=== PATIENT | male | born 1970 | race Caucasian/White ===

== ENCOUNTER 2018-04-11 07:01 | Emergency (ER) | payer MEDICARE ==
[2018-04-11] MEDS ORDERED: KETOROLAC TROMETHAMINE INJ/PF 30 MG/1 ML SDV IM ONE (08:20)
[2018-04-11] MEDS ORDERED: LIDOCAINE 5% (700 MG) TRANSDERMAL ADH..PATCH TP ONE (08:20)
--- NOTE | 2018-04-11 08:26 | ER Document Report ---
HPI - HPI Time Seen by Provider: 04/11/18 08:08 Pain Level: 4 Notes: Patient is a 47-year-old male with a history of cerebral palsy who presents emergency department complaining of lower neck pain and bilateral shoulder pain. Patient states that he has had bilateral shoulder pain/soreness over the last few months and the lower neck pain started about 5 days ago without any injury. Patient states he does do repetitive motions at work and pain is exacerbated by movement. Patient states that his pains do not radiate otherwise. He has not noticed any bruising or redness. No recent illness. Denies drug allergies. Patient is requesting a work note. Denies any headache, fever, head injury, changes in vision/speech/mentation/hearing, URI, sore throat, chest pain, palpitations, syncope, cough, shortness of breath, wheeze, dyspnea, abdominal pain, nausea/vomiting/diarrhea, urinary retention, dysuria, hematuria, loss of control of bowel or bladder, numbness/tingling, saddle anesthesia, muscle paralysis/weakness, or rash. - ROS Systems Reviewed and Negative: Yes All other systems reviewed and negative - REPRODUCTIVE Reproductive: DENIES: : Past Medical History - Social History Smoking Status: Never Smoker Family History: Hyperlipidemia Musculoskeletal Medical History: Reports Hx Muscle Weakness Skin Medical History: Denies Hx MRSA Psychiatric Medical History: Reports: Hx Depression - Anxiety, Hx Obsessive Compulsive Disorder Past Surgical History: Reports: Hx Herniorrhaphy, Hx Orthopedic Surgery - Arch building--bilateral foot surgery as a child - Immunizations Hx Diphtheria, Pertussis, Tetanus Vaccination: Yes Vertical Provider Document - CONSTITUTIONAL Agree With Documented VS: Yes Notes: PHYSICAL EXAMINATION: GENERAL: Well-appearing, well-nourished and in no acute distress. NECK: Normal range of motion, supple without lymphadenopathy. + mild reproducible tenderness to the fat pad inferiorly. No other bony midline tenderness. Spurling negative. No rigidity/meningismus. N/V intact distal. LUNGS: Breath sounds clear to auscultation bilaterally and equal. No wheezes rales or rhonchi. HEART: Regular rate and rhythm without murmurs, rubs, gallops. Musculoskeletal: B/l shoulders: FROM to passive/active. Strength 5+/5 due to pain. + mild b/l impingement test. Neg speed test. No crepitus. No erythema or warmth. No deformity or ecchymosis. RC intact 5+/5 strength. Extremities: No cyanosis, clubbing, or edema b/l. Peripheral pulses 2+. Capillary refill less than 3 seconds. NEUROLOGICAL: Normal speech, normal gait. Normal sensory, motor exams PSYCH: Normal mood, normal affect. SKIN: Warm, Dry, normal turgor, no rashes or lesions noted. - INFECTION CONTROL TRAVEL OUTSIDE OF THE [place] IN LAST 30 DAYS: No Course - Re-evaluation Re-evalutation: 04/11/18 08:23 Patient is an afebrile, well-hydrated, 47-year-old male who presents to the ED with bilateral shoulder pain which I suspect to be possible impingement/bursitis and lower neck pain, suspect pain associated with the fat pad, non-infected. Vitals are acceptable without any significant tachycardia, tachypnea, or hypoxia. PE is otherwise unremarkable for any neurovascular compromise, obvious tendon/ligament rupture, obvious fracture/dislocation, septic joint. Pt was given toradol and lidoderm patch. No labs or imaging warranted at this time. Patient is nontoxic-appearing. Rx for voltaren gel and naproxen. Conservative measures otherwise for symptoms. Stretching exercises reviewed and possible joint injections with ortho also reviewed. Recheck with your PCM in 3-5 days. Consider consult orthopedics. Return to the ED with any worsening/concerning symptoms otherwise as reviewed in discharge. Patient is in agreement. - Vital Signs Vital signs: Temp Pulse Resp BP Pulse Ox 98.0 F 83 18 135/79 H 94 04/11/18 07:11 04/11/18 07:11 04/11/18 07:11 04/11/18 07:11 04/11/18 07:11 Discharge - Discharge Clinical Impression: Neck pain Bilateral shoulder pain Qualifiers: Chronicity: acute Qualified Code(s): M25.511 - Pain in right shoulder; M25.512 - Pain in left shoulder Condition: Stable Disposition: HOME, SELF-CARE Additional Instructions: Rest, Ice Tylenol/ibuprofen as needed Light stretches daily Strength exercises as able Moist heat and massage may help F/u with your PCP in 3-5 days for a recheck Consider consult(s) with Orthopedics/physical therapy for ongoing/worsening symptoms Return to the ED with any worsening symptoms and/or development of fever, headache, chest pain, palpitations, syncope, shortness of breath, trouble breathing, abdominal pain, n/v/d, blood in stool/urine, loss of control of bowel/bladder, urinary retention, muscle weakness/paralysis, saddle anesthesia, numbness/tingling, or other worsening symptoms that are concerning to you. Prescriptions: Diclofenac Sodium [Voltaren] 4 gm TP QID PRN #100 gel..gm. PRN Reason: Naproxen 500 mg PO BID #14 tablet Forms: Elevated Blood Pressure, Return to Work Referrals: ERWIN WHITTEN DO [Primary Care Provider] - Follow up as needed [facility] [Provider Group] - Follow up as needed
[2018-04-11 08:51] VITALS: BP 111/71
== END 2018-04-11 08:51 | disposition home or self-care (01) ==
LOC: ER 07:01
DX: M54.2 Cervicalgia (principal); M25.512 Pain in left shoulder; M25.511 Pain in right shoulder
CPT/HCPCS: 99283; 96372; J1885

== ENCOUNTER → 2018-04-26 | Outpatient (CLI) | payer MEDICARE ==
--- NOTE | 2018-04-26 13:56 | RADIOLOGY REPORT (SQ) ---
EXAM DESCRIPTION: SHOULDER LEFT 2 OR MORE VIEWS COMPLETED DATE/TIME: 04/26/2018 12:44 pm REASON FOR STUDY: PAIN IN LEFT SHOULDER M25.512 COMPARISON: None. NUMBER OF VIEWS: Three views left shoulder. LIMITATIONS: None. FINDINGS: There is no acute or significant bone, joint or soft tissue abnormality. OTHER: No other significant finding. IMPRESSION: NORMAL STUDY. TECHNICAL DOCUMENTATION: JOB ID: [id number] Reading location - IP/workstation name: [email or web address]
--- NOTE | 2018-04-26 13:56 | RADIOLOGY REPORT (SQ) ---
EXAM DESCRIPTION: SHOULDER RIGHT 2 OR MORE VIEWS COMPLETED DATE/TIME: 04/26/2018 1:04 pm REASON FOR STUDY: BILATERAL SHOULDER PAIN M25.511 COMPARISON: None. NUMBER OF VIEWS: Three views right shoulder. LIMITATIONS: None. FINDINGS: There is no acute or significant bone, joint or soft tissue abnormality. OTHER: No other significant finding. IMPRESSION: NORMAL STUDY. TECHNICAL DOCUMENTATION: JOB ID: [id number] Reading location - IP/workstation name: [email or web address]
== END ==
LOC: OD 12:04
PROVIDERS: ATTEND Family Medicine
DX: M25.512 Pain in left shoulder (principal)